=== PATIENT | male | born 1945 | race Caucasian/White ===

== ENCOUNTER → 2017-07-04 10:54 | Outpatient (CLI) | payer MEDICARE, SELFPAY ==
--- NOTE | 2017-07-04 | DI.CT.S_ITS ---
PROCEDURE: CT HEAD/BRAIN WO CON INDICATIONS: SUBDURAL HEMATOMA TECHNIQUE: Noncontrast 4.5 mm thick angled axial sections acquired from the foramen magnum to the vertex, with coronal and sagittal reformats. For radiation dose reduction, the following was used: automated exposure control, adjustment of mA and/or kV according to patient size. COMPARISON: [facility], CT, HEAD WITHOUT CONTRAST, 06/02/2017, 12:57. FINDINGS: Image quality: Excellent. CSF spaces: Basal cisterns are patent. No extra-axial fluid collections. The ventricles are symmetric in size and shape. Brain: No intracranial bleeds or masses. There is cerebral volume loss for age, with resultant ventricular and sulcal prominence. There are periventricular and deep white matter chronic small vessel ischemic changes. There is intracranial internal carotid artery atherosclerosis. Skull and face: Calvarium and visualized facial bones appear intact, without suspicious lesions. Sinuses: Visualized sinuses and mastoids are clear. IMPRESSION: Resolution of previously seen hypodense left subdural fluid collection. No acute intracranial abnormality. Volume loss and small vessel ischemic disease. Dictated by: Jade Sharif M.D. on 07/04/2017 at 11:10 Approved by: Jade Sharif M.D. on 07/04/2017 at 11:11
== END ==
PROVIDERS: Family Provider Family Medicine; PCP Family Medicine; Visit Provider Family Medicine
DX: S06.5X9A Traumatic subdural hemorrhage with loss of consciousness of unspecified duration, initial encounter (principal)
CPT/HCPCS: 70450

== ENCOUNTER → 2018-09-01 08:28 | Outpatient (CLI) | payer MEDICARE, OTHER, SELFPAY ==
--- NOTE | 2018-09-01 08:35 | DI.MRI.S_ITS ---
PROCEDURE: MR HEAD/BRAIN WO CON INDICATIONS: NONTRAUMATIC SUBDURAL HEMMORAGE TECHNIQUE: Non-contrast axial T1 spin echo, axial T2 fast spin echo, sagittal and axial FLAIR, coronal T2 fast spin echo, axial gradient echo, axial diffusion and ADC through the brain. COMPARISON: [facility], CT, CT HEAD/BRAIN WO CON, 07/04/2017, 10:56. [facility], CT, HEAD WITHOUT CONTRAST, 06/02/2017, 12:57. FINDINGS: Image quality: Excellent. CSF spaces: Ventricles appear symmetric in size and shape. Basal cisterns are patent. No extra-axial fluid collections. Brain: No intracranial bleeds or mass effects. There is mild cerebral volume loss for age. There are mild pontine, periventricular and deep white matter chronic small vessel ischemic changes. Brainstem appears normal. Diffusion-weighted images show no acute ischemic insults. No areas of encephalomalacia. No susceptibility weighted abnormalities identified in the brain parenchyma. Normal intravascular flow voids are present. Skull and face: Calvarial bone marrow is normal in signal. Orbits are normal. Sinuses: Sinuses and mastoids are clear. IMPRESSION: 1. No acute intracranial disease process. 2. No intracranial hemorrhage. 3. No abnormal intracranial mass. 4. Mild, diffuse cerebral volume loss. 5. Mild periventricular, subcortical and pontine white matter chronic microvascular ischemic changes. Dictated by: Yelena Mathis MD, PhD on 09/03/2018 at 8:58 Approved by: Yelena Mathis MD, PhD on 09/03/2018 at 11:03
== END ==
PROVIDERS: PCP Family Medicine; Visit Provider Family Medicine
DX: I62.00 Nontraumatic subdural hemorrhage, unspecified (principal); I67.82 Cerebral ischemia
CPT/HCPCS: 70551

== ENCOUNTER → 2020-04-09 10:30 | Outpatient (CLI) | payer MEDICARE, OTHER, SELFPAY ==
--- NOTE | 2020-04-09 10:35 | DI.RAD.S_ITS ---
PROCEDURE: XR HIP W PEL IF DONE LT 2V INDICATIONS: LEFT HIP PAIN TECHNIQUE: AP pelvis with lateral view(s) of the left hip(s). COMPARISON: None. FINDINGS: Bones: No fractures or dislocations. Pelvic ring appears intact. No suspicious bony lesions. Soft tissues: The visualized bowel gas pattern is normal. No suspicious soft tissue calcifications. IMPRESSION: Asymmetric hip joint osteoarthritis, mild on the right and moderate on the left Dictated by: Marin Muller M.D. on 04/09/2020 at 12:16 Approved by: Marin Muller M.D. on 04/09/2020 at 12:17
== END ==
PROVIDERS: PCP Family Medicine; Referring Provider Family Medicine; Visit Provider Family Medicine
DX: M25.552 Pain in left hip (principal); M16.12 Unilateral primary osteoarthritis, left hip
CPT/HCPCS: 73502

== ENCOUNTER → 2020-05-21 08:39 | Outpatient (CLI) | payer MEDICARE, OTHER, SELFPAY ==
--- NOTE | 2020-05-21 | DI.MRI.S_ITS ---
PROCEDURE: MR HIP LT WO CON INDICATIONS: LEFT HIP PAIN TECHNIQUE: Noncontrast coronal T1 spin echo and STIR through the bony pelvis. Coronal and axial T2 fast spin echo with fat saturation, sagittal T1 spin echo, and oblique axial T2 fast spin echo with fat saturation through the hip. COMPARISON: None. FINDINGS: Bones and joints: No fracture identified. Sacroiliac joints are unremarkable in signal intensity. There is lower lumbar spondylosis and facet arthropathy. Large left hip joint effusion. No evidence of osteonecrosis. Tendons and ligaments: The gluteus medius and minimus tendons appear intact, without associated muscle atrophy. Proximal iliotibial band intact. Iliopsoas tendon intact. Mild hamstring origin tendinopathy. This finding technically age indeterminate. The straight and reflected heads of the rectus femoris muscle origin appear intact Ligamentum teres is not well seen and possibly ruptured. There is heterogeneous mildly T2 hyperintense signal change present in the fovea. Labrum: Circumferential macerated appearance of the labrum in keeping with ill-defined tear which is likely chronic/degenerative. The alpha angle of the femur is abnormal measuring approximately 77?, this is due to decreased femoral head neck step-off and dysplastic osseous bump at the anterior femoral head neck junction. Left hip joint degeneration with areas of full-thickness articular cartilage loss. Subchondral sclerosis and spurring. Soft tissues: Visualized muscles demonstrate normal bulk and internal signal. Quadratus femoris muscle normal. Proximal sciatic neurovascular bundle appears normal adjacent to the hamstring tendons. No free pelvic fluid. Bladder normal. Genitourinary structures and bowel loops appear normal where visualized. IMPRESSION: Severe left hip joint osteoarthritis with large joint effusion. Ligamentum teres not well seen and could be ruptured. There is associated T2 hyperintense signal change at the fovea. Circumferential macerated labral tear which is likely chronic and degenerative. 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 Dictated by: Abel Rios M.D. on 05/21/2020 at 16:31 Approved by: Abel Rios M.D. on 05/21/2020 at 16:40
== END ==
PROVIDERS: PCP Family Medicine; Referring Provider Family Medicine; Visit Provider Family Medicine
DX: M25.552 Pain in left hip (principal); M16.12 Unilateral primary osteoarthritis, left hip; M25.452 Effusion, left hip; S73.102A Unspecified sprain of left hip, initial encounter
CPT/HCPCS: 73721

== ENCOUNTER → 2020-06-10 12:36 | Outpatient (CLI) | payer MEDICARE, OTHER, SELFPAY ==
[2020-06-10 13:25] LABS: BUN Creatinine Ratio 21.2 (6-22); Blood Urea Nitrogen 18 mg/dL (9-20); Estimated Glomerular Filt Rate > 60.0 mL/min (>60)
== END ==
PROVIDERS: PCP Family Medicine; Referring Provider Urology; Visit Provider Urology
DX: R97.20 Elevated prostate specific antigen [PSA] (principal)
CPT/HCPCS: 36415; 82565; 84520

== ENCOUNTER → 2020-06-12 11:58 | Outpatient (CLI) | payer MEDICARE, OTHER, SELFPAY ==
--- NOTE | 2020-06-12 12:04 | DI.CT.S_ITS ---
PROCEDURE: CT ABDOMEN PELVIS WO/W CON INDICATIONS: HEMATURIA TECHNIQUE: Optional 5 mm thick noncontrast images acquired from the diaphragm to the symphysis pubis. After the administration of intravenous contrast, 5 mm thick images acquired from the diaphragm to the symphysis pubis after a 10-minute delay. 2 mm thick coronal and sagittal reformats were then performed of the kidneys and ureters. For radiation dose reduction, the following was used: automated exposure control, adjustment of mA and/or kV according to patient size. COMPARISON: [facility], CT, KIDNEY/ URETER/BLADDER, 04/10/2015, 12:59. FINDINGS: Image quality: Excellent. Lung bases: Lung bases are clear. Heart size is normal. Coronary artery calcifications. Question of tiny hiatal hernia. Urinary system: Both kidneys are normal in size. Small calculus in the proximal left ureter measuring 0.3 cm, (2/41). No hydronephrosis. Right nonobstructing kidney stone measuring 0.3 cm, (2/41). A few small simple renal cysts. A few cortical hypodensities which are too small to further characterize. Scarring in the mid left kidney, new. No solid renal mass. No perinephric fat stranding. There is normal bilateral renal enhancement. Renal calyces appear normal in morphology when filled with contrast. Opacified portions of both ureters demonstrate normal caliber. No additional upper urinary tract filling defect. Bladder wall thickness is normal. No calcified bladder stones. Other solid organs: Liver is normal in size and enhancement. A few small cysts. Punctate hepatic calcifications. Gallbladder is unremarkable. Biliary system is non dilated. Pancreas enhances normally. Spleen is normal in size and enhancement. Calcified splenic granuloma. No adrenal nodules. Peritoneum and bowel: Small duodenal diverticulum. No small bowel obstruction. Diverticulosis. No diverticulitis. Normal appendix. No free fluid or air. Nodes and vessels: No retroperitoneal or mesenteric adenopathy by size criteria. Aorta and inferior vena cava are normal in size. Moderate circumferential calcified plaque. Abdominal wall: No ventral hernias. Pelvis: No pathologic free pelvic fluid. Suspect small fat containing inguinal hernias. No adenopathy. Bones: No suspicious bony lesions. No vertebral body compression fractures. IMPRESSION: 1. Left proximal ureter calculus measuring 0.3 cm. No hydronephrosis. 2. Additional right nonobstructing calculus measuring at 0.3 cm. 3. No solid renal mass. Dictated by: Gilbert Gray M.D. on 06/12/2020 at 12:55 Approved by: Gilbert Gray M.D. on 06/12/2020 at 13:10
== END ==
PROVIDERS: PCP Family Medicine; Referring Provider Urology; Visit Provider Urology
DX: R97.20 Elevated prostate specific antigen [PSA] (principal); R31.9 Hematuria, unspecified; N20.2 Calculus of kidney with calculus of ureter; N28.1 Cyst of kidney, acquired; K57.10 Diverticulosis of small intestine without perforation or abscess without bleeding
CPT/HCPCS: 74178; Q9967

== ENCOUNTER → 2020-07-03 11:24 | Outpatient (CLI) | payer MEDICARE, OTHER, SELFPAY ==
[2020-07-03 12:54] LABS: Add Manual Diff / Slide Review NO; Basophils Absolute Auto 0 /uL (0-100); Basophils Percent Auto 0.3 % (0-2); Eosinophils Absolute Auto 100 /uL (0-450); Eosinophils Percent Auto 2.4 % (2-4); Hematocrit 42.9 % (41-53); Hemoglobin 14.3 g/dL (13.5-17.5); Lymphocytes Absolute Auto 1300 /uL (1100-4500); Lymphocytes Percent Auto 23.9 % (25-40); Mean Corpuscular HGB Conc 33.4 % (30-36); Mean Corpuscular Volume 92.8 fL (80-100); Monocytes Absolute Auto 700 /uL (0-900); Monocytes Percent Auto 12.6 % (3-14); Neutrophils Absolute Auto 3200 /uL (1500-7000); Neutrophils Percent Auto 60.8 % (50-75); Platelet Count 164 X10^3/uL (150-400); Red Blood Cell Count 4.62 X10^6/uL (4.5-5.9); Red Cell Distribution Width 14.8 % (11.6-14.8); White Blood Cell Count 5.3 X10^3/uL (4.5-11.0)
[2020-07-03 13:10] LABS: Hemoglobin A1C% w Est Avg Glu 5.8 % (4.0-6.0)
[2020-07-03 13:26] LABS: BUN Creatinine Ratio 17.8 (6-22); Blood Urea Nitrogen 16 mg/dL (9-20); Calcium 9.3 mg/dL (8.4-10.2); Carbon Dioxide 31 mmol/L (22-32); Chloride 100 mmol/L (98-107); Estimated Glomerular Filt Rate > 60.0 mL/min (>60); Glucose 100 mg/dL (80-110); HEMOLYSIS < 15 (0-50); Potassium 4.1 mmol/L (3.4-5.1); Sodium 137 mmol/L (137-145)
== END ==
PROVIDERS: PCP Family Medicine; Referring Provider Orthopaedic Surgery Adult Reconstructive Orthopaedic Surgery; Visit Provider Orthopaedic Surgery Adult Reconstructive Orthopaedic Surgery
DX: Z01.818 Encounter for other preprocedural examination (principal); Z01.812 Encounter for preprocedural laboratory examination; R73.9 Hyperglycemia, unspecified
CPT/HCPCS: 36415; 80048; 83036; 85025; 93005

== ENCOUNTER → 2020-08-17 09:32 | Outpatient (CLI) | payer MEDICARE, OTHER, SELFPAY ==
[2020-08-17 11:56] LABS: COVID19 -Nasal RAPID Negative (Negative)
== END ==
PROVIDERS: PCP Family Medicine; Visit Provider Physician Assistant
DX: Z01.812 Encounter for preprocedural laboratory examination (principal); Z20.822 Contact with and (suspected) exposure to COVID-19
CPT/HCPCS: 87635; C9803

== ENCOUNTER 2020-08-19 08:41 | Day surgery (SDC) | payer MEDICARE, OTHER, SELFPAY ==
[2020-08-12 12:59] VITALS: BMI 25.8
--- NOTE | 2020-08-19 | DI.RAD.S_ITS ---
PROCEDURE: XR CHEST 1V INDICATIONS: post-COVID pre-op film TECHNIQUE: One view of the chest was acquired. COMPARISON: [facility], CT, CT ABDOMEN PELVIS WO/W CON, 06/12/2020, 12:06. [facility], CR, CHEST 2 VIEW, 10/24/2014, 8:56. [facility], , CHEST 2 VIEW, 07/20/2012, 12:16. FINDINGS: Surgical changes and devices: None. Lungs and pleura: Lungs are clear. No pleural effusions or pneumothorax. Mediastinum: Mediastinal contours appear normal. Heart size is normal. Bones and chest wall: No suspicious bony lesions. Calcification inferior to the left humeral head. Overlying soft tissues appear unremarkable. IMPRESSION: No acute cardiopulmonary abnormality. Dictated by: Gilbert Gray M.D. on 08/19/2020 at 9:10 Approved by: Gilbert Gray M.D. on 08/19/2020 at 9:12
[2020-08-19 09:14] VITALS: BP 145/84; PULSE 72; RESP 16; TEMP 36.3; O2SAT 99; BMI 25.8
[2020-08-19 09:29] LABS: Add Manual Diff / Slide Review NO; Basophils Absolute Auto 0 /uL (0-100); Basophils Percent Auto 0.4 % (0-2); Eosinophils Absolute Auto 100 /uL (0-450); Eosinophils Percent Auto 1.9 % (2-4); Hematocrit 45.3 % (41-53); Hemoglobin 15.2 g/dL (13.5-17.5); Lymphocytes Absolute Auto 1500 /uL (1100-4500); Mean Corpuscular HGB Conc 33.4 % (30-36); Mean Corpuscular Hemoglobin 30.4 PG (26-34); Monocytes Absolute Auto 700 /uL (0-900); Neutrophils Absolute Auto 5400 /uL (1500-7000); Neutrophils Percent Auto 69.7 % (50-75); Platelet Count 189 X10^3/uL (150-400); Red Blood Cell Count 4.98 X10^6/uL (4.5-5.9); Red Cell Distribution Width 13.9 % (11.6-14.8); White Blood Cell Count 7.7 X10^3/uL (4.5-11.0)
[2020-08-19 09:41] LABS: Fibrinogen 419 mg/dL (211-428)
[2020-08-19 09:42] LABS: PTT Partial Thromboplastin Tim 32 SECONDS (26.4-36.2)
[2020-08-19 09:44] LABS: Alanine Aminotransferase 23 IU/L (<50); Albumin 4.4 g/dL (3.5-5.0); Albumin Globulin Ratio 1.4 (1.0-2.8); Alkaline Phosphatase 73 U/L (38-126); Aspartate Aminotransferase 27 IU/L (17-59); BUN Creatinine Ratio 24.1 (6-22); Bilirubin Total 1.1 mg/dL (0.2-1.3); Blood Urea Nitrogen 21 mg/dL (9-20); Calcium 9.4 mg/dL (8.4-10.2); Carbon Dioxide 29 mmol/L (22-32); Chloride 101 mmol/L (98-107); Estimated Glomerular Filt Rate > 60.0 mL/min (>60); Globulin 3.2 g/dL (1.7-4.1); Glucose 113 mg/dL (80-110); HEMOLYSIS < 15 (0-50); Potassium 4.1 mmol/L (3.4-5.1); Sodium 137 mmol/L (137-145); Total Protein 7.6 g/dL (6.3-8.2)
[2020-08-19 09:51] LABS: D Dimer 600 ng/mL (<230)
[2020-08-19 09:53] LABS: NT-proBNP (BNP-Adult 18+) 921 pg/mL (<450)
--- NOTE | 2020-08-19 10:44 | P.PN_ITS ---
Subjective Subjective Date Patient Seen: 08/19/20 Interval history: Patient presents for total hip arthroplasty by Dr. Chaudhry 08/19/20. It was noted in his pre-operative assessment that he was diagnosed with COVID-19 07/10/20. He had mild respiratory symptoms and did not require hospitaliztion. Current policy guided on pre-operative testing, which revealed an elevated D-dimer and NT-Pro-BNP. Patient is at an intermediate cardiac risk for this surgery (prior to COVID) because of his coronary artery disease and atrial fibrillation. It was deemed prudent to obtain further testing in the form of an echocardiogram to better assess his risk at this point and to guide the apple-operative care. He had and echo before his COVID diagnosis, so this will enable an excellent comparison. Exam Vital Signs (past 8 hours): - 08/19/20 09:14 Temperature 97.4 F L Pulse Rate 72 Respiratory Rate 16 Blood Pressure 145/84 H Pulse Oximetry 99 Oxygen Delivery Method Room Air Oxygen Flow Rate 0 Objective Labs Result Diagrams: 08/19/20 08:20 08/19/20 08:20 Labs: Laboratory Results - last 24 hr 08/19/20 08/19/20 08/19/20 08:20 08:20 08:20 WBC 7.7 RBC 4.98 Hgb 15.2 Hct 45.3 MCV 91.0 MCH 30.4 MCHC 33.4 RDW 13.9 Plt Count 189 Neut % (Auto) 69.7 Lymph % (Auto) 19.0 L Alexander % (Auto) 9.0 Eos % (Auto) 1.9 L Baso % (Auto) 0.4 Neut # (Auto) 5400 Lymph # (Auto) 1500 Alexander # (Auto) 700 Eos # (Auto) 100 Baso # (Auto) 0 APTT 32 Fibrinogen 419 D-Dimer 600 H Sodium 137 Potassium 4.1 Chloride 101 Carbon Dioxide 29 BUN 21 H Creatinine 0.87 Estimated GFR > 60.0 BUN/Creatinine Ratio 24.1 H Glucose 113 H Calcium 9.4 Total Bilirubin 1.1 AST 27 ALT 23 Alkaline Phosphatase 73 NT-Pro-B Natriuret Pep 921 H Total Protein 7.6 Albumin 4.4 Globulin 3.2 Albumin/Globulin Ratio 1.4 PFSH Medical History (Updated 08/13/20 @ 08:38 by Xuan Hastings RN) A-fib CAD (coronary artery disease) COVID-19 virus infection Elevated PSA HLD (hyperlipidemia) HTN (hypertension) Kidney stones Myocardial infarction (~2015) Osteoarthritis Presence of Watchman left atrial appendage closure device (~2019) Subdural hematoma (04/2018) Surgical History (Updated 08/12/20 @ 13:17 by Xuan Hastings RN) Hx of cardiac cath Hx of tonsillectomy Social History household members: spouse Smoking Status: Never smoker alcohol intake: never Assessment & Plan Assessment & Plan narrative: 75 year-old man pre-op for MAISHA post-COVID infection with elevated labs concerning for cardiac injury and coagulation derangement. Will reschedule for two weeks with plan for an echocardiogram and its comparison to previous in that time. May need to consider following Pro-NT-BNP in the days post-operatively to assess for cardiac injury/strain while an inpatient. Time Spent With Patient Time with patient: less than 15 minutes
--- NOTE | 2020-08-19 10:49 | SUR.PREOP ---
PATIENTS LABS, XRAY AND EKG WERE ALL RESULTED. DR. CONNOLLY HAS REVIEWED, CASE HAS BEEN CANCELLED. PATIENT NOTIFIED BY DR. CONNOLLY. PATIENT ESCORTED TO WAITING AREA TO WAIT FOR HIS DTR TO ARRIVE. HE HAS HIS CELL PHONE AND ALL OTHER PERSONAL ITEMS WITH HIM.
== END 2020-08-19 10:51 | disposition home or self-care (01) ==
LOC: OR 08:42 → AC 08:43
PROVIDERS: Anesthesiology; PCP Family Medicine; Referring Provider Orthopaedic Surgery Adult Reconstructive Orthopaedic Surgery; Visit Provider Orthopaedic Surgery Adult Reconstructive Orthopaedic Surgery
DX: M16.12 Unilateral primary osteoarthritis, left hip (principal); Z53.09 Procedure and treatment not carried out because of other contraindication; Z86.16 Personal history of COVID-19; I10 Essential (primary) hypertension; I25.10 Atherosclerotic heart disease of native coronary artery without angina pectoris
CPT/HCPCS: 27130; 71045; 80053; 83880; 85025; 85379; 85384; 85730; 93005; 93010

== ENCOUNTER → 2020-08-31 08:54 | Outpatient (CLI) | payer MEDICARE, OTHER, SELFPAY ==
--- NOTE | 2020-08-31 | DI.ECHO.S_ITS ---
[place] +---------+ : : [address] : : : : [id number] : : : : Phone: [phone]+ Echocardiogram Report + + :Name: JENN GARCIA Study Date: 08/31/2020 Height: 68 in : :[facility] ReadingLocation: Weight: 165 lb : : Gender: Male BSA: 1.9 m2 : :: 1945 Age: 75 yrs BP: 169/94 mmHg: :Reason For Study: Hypertension : :Ordering Physician: [place], : :JEREMY Performed By: Azam Grigsby : :Referring: JEREMY COLEMAN : + + Interpretation Summary Normal left ventricle size with ejection fraction 55 +/- 5% (with [id number] variability). There is posterolateral wall mild hypokinesis. Mildly dilated left atrium. Mild aortic valve sclerosis. Mild mitral regurgitation. Mild tricuspid regurgitation. The right ventricular systolic pressure is estimated to be at least 38 mmHg based on an estimated right atrial pressure of 3 mm Hg. Comparison is made with the echocardiogram of 05/31/2013, atrial fibrillation is new and wall motion abnormality has improved. Procedure: A two-dimensional transthoracic echocardiogram with color flow and Doppler was performed. The study quality was technically adequate. Comparison is made with the echocardiogram of 05/31/2013. The patient was in atrial fibrillation with controlled ventricular rate during the exam. Left Ventricle: The left ventricle is normal in size and wall thickness. Left ventricular systolic function is low normal. Left ventricular ejection fraction is estimated to be 55 +/- 5%. There is posterolateral wall mild hypokinesis. There are no other obvious focal wall motion abnormalities. Diastolic function could not be accurately assessed due to atrial fibrillation. Right Ventricle: The right ventricle is normal in size and function. Atria: The left atrium is mildly dilated. Right atrial size is normal. There is no Doppler evidence for an interatrial shunt. Mitral Valve: The mitral valve is normal in structure and function. There is mild mitral regurgitation. Aortic Valve: There is mild aortic valve sclerosis. No aortic regurgitation is present. Tricuspid Valve: The tricuspid valve is normal in structure and function. There is mild tricuspid regurgitation. The right ventricular systolic pressure is estimated to be at least 38 mmHg based on an estimated right atrial pressure of 3 mm Hg. Pulmonic Valve: The pulmonic valve is normal in structure and function. There is no pulmonic valvular regurgitation. Great Vessels: The aortic root is normal size. The dimensions of the ascending aorta are normal. The IVC is of normal diameter and collapses greater than 50% with a sniff. This suggests a low right atrial pressure of 3 mm Hg. Pericardium/ Pleura There is no pericardial effusion. There is no pleural effusion. MMode/2D Measurements & Calculations LVIDd: 5.0 cm LVOT diam: 2.2 cm LVIDs: 3.8 cm Ao root diam: 3.0 cm FS: 24.5 % asc Aorta Diam: 3.1 cm IVSd: 0.90 cm LVPWd: 0.99 cm LV power. diameter/BSA (cm/m^2): 2.7 LV sys. diameter/BSA (cm/m^2): 2.0 LA dimension: 4.0 cm RA long axis: 5.7 cm LA A2 area: 21.7 cm2 IVC diam: 1.4 cm LA A4 area: 22.4 cm2 LA length (vol): 5.8 cm LA vol: 70.8 ml LA vol index: 37.6 ml/m2 LVLs ap4: 6.7 cm LVLd ap2: 6.9 cm LVLs ap2: 6.4 cm TAPSE_phl: 2.0 cm RVIDd/LVIDd_phl: 0.67 Doppler Measurements & Calculations Ao V2 max: 105.0 cm/sec LVOT Max Romie: 66.7 cm/sec Ao V2 mean: 75.1 cm/sec LV V1 max P.8 mmHg Ao max P.0 mmHg LV V1 VTI: 14.5 cm Ao mean P.0 mmHg LO(I,D): 2.8 cm2 Ao V2 VTI: 19.6 cm LO(V,D): 2.4 cm2 sev ratio: 0.74 LO indexed to BSA (cm^2/m^2): 1.5 TR max romie: 297.0 cm/sec SV(LVOT): 55.1 ml TR max P.3 mmHg PA V2 max: 118.0 cm/sec PA V2 mean: 66.7 cm/sec PA mean P.0 mmHg PA pr(Accel): 39.8 mmHg AV VR_phl: 0.64 LO(VTI)/BSA_phl: 1.5 Electronically signed by: Denisse Krishnamurthy on Reading Physician:08/31/2020 04:36 PM
== END ==
PROVIDERS: PCP Family Medicine; Referring Provider Internal Medicine; Visit Provider Internal Medicine
DX: I10 Essential (primary) hypertension (principal); I08.3 Combined rheumatic disorders of mitral, aortic and tricuspid valves
CPT/HCPCS: 93306

== ENCOUNTER → 2020-09-28 10:34 | Outpatient (CLI) | payer MEDICARE, OTHER, SELFPAY ==
[2020-09-28 13:11] LABS: COVID19 -Nasal RAPID Negative (Negative)
== END ==
PROVIDERS: PCP Family Medicine; Visit Provider Nurse Practitioner
DX: Z20.822 Contact with and (suspected) exposure to COVID-19 (principal)
CPT/HCPCS: 87635; C9803

== ENCOUNTER 2020-10-01 11:13 | Observation (INO) | payer MEDICARE, OTHER, SELFPAY ==
[2020-09-22 08:02] VITALS: BMI 25.8
[2020-09-30] VITALS (31 sets, daily range): BP systolic 88–170; BP diastolic 52–93; PULSE 74–92; RESP 10–98; TEMP 36.1–36.8; O2SAT 10–99; BMI 25.8
--- NOTE | 2020-09-30 | DI.RAD.S_ITS ---
PROCEDURE: XR PELVIS 1-2V INDICATIONS: LEFT HIP POST OP TECHNIQUE: 1 view of the lower pelvis acquired. COMPARISON: [facility], , XR PELVIS 1-2V, 09/30/2020, 8:52. FINDINGS: Bones: Patient is status post left hip arthroplasty, with hardware components in expected positions. The hip joint appears congruent. The visualized bony structures appear intact. Soft tissues: Overlying postoperative changes are noted. No suspicious soft tissue densities. IMPRESSION: Normal alignment after left total hip arthroplasty. Dictated by: Marin Muller M.D. on 09/30/2020 at 10:43 Approved by: Marin Muller M.D. on 09/30/2020 at 10:43
--- NOTE | 2020-09-30 06:50 | DI.RAD.S_ITS ---
PROCEDURE: XR PELVIS 1-2V INDICATIONS: MAISHA, anterior TECHNIQUE: Intra-operative view of the pelvis and hip acquired. COMPARISON: None. FINDINGS: Bones: Intraoperative devices prior to placement of arthroplasty prostheses are in expected positions. No fractures or suspicious bony lesions. Soft tissues: Overlying surgical retractors are present, along with other intraoperative changes. IMPRESSION: Normal alignment in preparation for placement of final components of left total hip arthroplasty. Dictated by: Marin Muller M.D. on 09/30/2020 at 10:53 Approved by: Marin Muller M.D. on 09/30/2020 at 10:53
[2020-09-30] MEDS: PREGABALIN 75 MG CAPSULE PO (07:22)
[2020-09-30] MEDS: ACETAMINOPHEN 325 MG TABLET 975 MG PO (07:22)
[2020-09-30] MEDS: CELECOXIB 200 MG CAPSULE PO (07:22)
[2020-09-30] MEDS: LACTATED RINGERS 1,000 ML 42 ML IV ×2 (07:25→09:51)
--- NOTE | 2020-09-30 07:28 | PM.PREOP ---
Pre-operative Note COVID-19 COVID-19 status: Negative Result date/Date tested (Pos, Neg/Pending): 09/28/20 Interval Note History & Physical reviewed/Exam performed by Physician: Yes Changes to H&P: Yes H&P completed within 30 days and has changed as indicated here:: Patient's surgery was cancelled last month due to concern for cardiac injury from Covid diagnosis. He has undergone repeat echo without change. Plan is to proceed with right anterior MAISHA.
[2020-09-30] MEDS: CEFAZOLIN 1 GM VIAL 2 GM IV ×2 (08:20→17:05)
[2020-09-30] MEDS: MORPHINE 4 MG/ML INJ INJ (08:30)
[2020-09-30] MEDS: ROPIVACAINE 0.5% PF 5 MG/ML 20ML VIAL 60 ML INJ (08:30)
[2020-09-30] MEDS: KETOROLAC 30 MG/ML VIAL IV (08:30)
--- NOTE | 2020-09-30 08:33 | SUR.OPER ---
Patient supine on padded [place] table, one arm on padded arm board at <90, other arm padded and secured with tape across patient's chest, both legs secured in padded traction boots and positioned per surgeon, padded post at patient's groin, pressure points checked and padded.
[2020-09-30] MEDS: VANCOMYCIN 1,000 MG VIAL 1000 MG TOP (09:51)
--- NOTE | 2020-09-30 10:11 | PM.OP.1 ---
Operative Date/Time/Diagnoses Date of procedure: 09/30/20 Time of procedure: 10:12 Pre-op diagnosis: left hip OA Post-op diagnosis: same Procedure & Clinicians Procedure: Left anterior total hip arthroplasty Same procedure as scheduled: Yes Indications: Left hip osteoarthritis resistant to further conservative measures Surgeon: Alfredo Chaudhry Solar Energy Consultant And Designer: Umm Da Silva Anesthesia Type: General and Spinal Operative Notes Findings: Thickened capsule and wearing of the weight-bearing portion of the articular cartilage of the femoral head. Closure Type: primary Prosthetic devices, grafts, tissues, transplants, or devices: Reinoso and nephew R3 54 mm 3 hole cup 1x 25mm screw 1x 15mm screw 54 mm x 36 mm neutral offset polyethylene liner Anthology a fit standard offset size 9 femoral stem 36+ 0 delta Biolox head Estimated Blood Loss (mL): 300 Procedure in detail: Patient was met in the preoperative holding area where the site and side surgery marked by . Informed consent had been reviewed and signed in clinic was also reviewed the preop holding area. Of note patient was scheduled to have surgery about a month ago was canceled due to concerns that he may have had cardiac damage after ezra COVID. He subsequently underwent echo and was cleared for surgery. Patient was then brought back in the operating room where he received a spinal anesthetic and was deuce underwent general anesthesia. He was placed on [place] table both feet were placed in well-padded [place] table boots. The left lower extremity then prepped and draped in normal sterile fashion. A surgical time-out was performed verifying site side surgical and the patient. A 10 cm long incision starting approximately 2 cm distal and 1 cm lateral to ASIS into the fibular head was made the skin with a 10. Blade. Electrocautery was then used to dissect down to the level of the tensor fascia. Tensor fascia was then incised using 10. Blade. Allis clamp was placed on the medial leaf of the tensor itself was reflected laterally. A Cobra was then placed over the superior aspect of the femoral neck. A Meyerding retractors then placed over the lateral aspect of the rectus femoris and retracted medially this gave exposure to this and a branch of the femoral circumflex vessels these were coagulated using electrocautery. Next a 2nd Cobra retractors placed under the inferior aspect of the femoral neck. And a bent Hohmann retractors placed over the anterior aspect of the acetabulum to give us exposure to the capsule. Inverted T-shaped capsulotomy was then performed superior and inferior leaflets were tagged with a FiberWire suture. Cobra retractors then placed intracapsularly a femoral neck cut was then used medially with a reciprocating saw based off our preoperative template. A corkscrew was then used to remove the femoral head. Soft tissue sleeve protector was then introduced into the wound retractor was then replaced and pulmonary was then removed using electrocautery the remnant of the labrum was then also removed using [place] blade. Began reaming with a 44 mm Reamer upsizing by 2s until I got to 50 mm Reamer at this point I brought in fluoroscopy and removed last several reamers under fluoroscopic guidance ending with a 52 and then going up to 1 more size to 53 mm Reamer which had good resistance. I then selected a 54 mm 3 hole R3 cup this was then malleted into place under fluoroscopic guidance and 2 screws were then placed. The 54 mm x 36 mm neutral offset polyethylene liner was then placed and packed into place verifying L tabs were flush with the rim. Then turned my attention the femoral side femoral elevator hook was placed under the posterior aspect of the femur the femur was externally rotated to 120? extend to the floor and adducted. A bent Hohmann was placed over the superior aspect of the superior leaflet and the capsule was further released off the inner shoulder of the greater trochanter gives a shop soft spot over the greater trochanter a single large prong retractor was then placed over his superior aspect of greater trochanter and a Meyerding was then placed over the medial calcar to give us exposure the femoral neck cut. A canal finer was then used followed by a chili pepper broach followed size 1 through 3 of the standard broaches I then used a fit broaches up to a size 8. I then calcar planed off the size 8 broach and placed a standard offset head with a 32+ 0 head this was then reduced fluoroscopic imaging demonstrated were short on this side by several mm although was stable to maximal external rotation as well as external rotation 90? extension the floor. In addition the stem was in slight amount of varus. The hip was then dislocated trial components were removed I then up sized to a size 9 a fit which sat a mm proud. We then trialed with a 36 +4 trial head this was not able to be reduced due to soft tissue tension. I then downsized to a 36+ 0 head and reduced the hip again we were shown to be a little short on this side by did not think that getting to a 36+ 4 head would be possible without possibly fracturing the femur. Trial components were then removed a size 9 a fit femoral component was then placed and a 36+ 0 delta Biolox head was then malleted onto the trunnion and reduced a final time. Peritalar soft tissues were infiltrated with local anesthetic Betadine solution was then placed in the wound and final fluoroscopic images were obtained. Copious normal saline was then used to irrigate the wound and the capsulotomy was then repaired using a running Ethibond suture. FiberWire tag sutures were then removed. The tensor fascia was then repaired using 1. Vicryl in an interrupted locking fashion followed by 2 Vicryl Vicryl in the subcutaneous layer followed by running 3-0 Stratafix followed by Dermabond and Aquacel dressing Complications: none Post-operative Condition: stable Disposition: PACU Plan for aftercare: WBAT LLE, ASA 81mg BId for 6 weeks, 24 hours post-op abx
--- NOTE | 2020-09-30 10:26 | SUR.PHASEI ---
Patient from OR in bed with Dr Bray and RN after duramorph spinal. Pt on Phenyllephrine drip running at 40mcg/min. Decreased by MD to 33mcg/min. Plan to wean as spinal wears off. Pt placed on 2L NC oxygen. Breathing unassisted. Opens eyes.
--- NOTE | 2020-09-30 10:39 | SUR.PHASEI ---
Dr Childress at bedside. Reviewed patient VS. X-ray done. See by Dr Chaudhry.
--- NOTE | 2020-09-30 10:45 | SUR.PHASEI ---
Pheylephrine drip decreased to 20mcg/min by Dr Riveroyk
--- NOTE | 2020-09-30 11:00 | SUR.PHASEI ---
Pheylephrine drip decreased to 15mch/min
--- NOTE | 2020-09-30 11:06 | SUR.PHASEI ---
Dr Childress at bedside. VS reviewed and Pheylephrine drip dosage and weaning.
--- NOTE | 2020-09-30 11:10 | SUR.PHASEI ---
Phenylephrine drip decreased to 10mcg/min
--- NOTE | 2020-09-30 11:18 | SUR.PHASEI ---
Phenylephrine decreased to 5mcg/min. Pt starting to move lower extremities.
--- NOTE | 2020-09-30 11:25 | SUR.PHASEI ---
1123 Phenylephrine drip stopped.
--- NOTE | 2020-09-30 11:52 | SUR.PHASEI ---
SBAR report to Veronica WOOD
--- NOTE | 2020-09-30 11:59 | SUR.PHASEI ---
Denies pain/nausea. HOB slightly elevated and juice given prior to transfer. To floor by an RN and MANAGER COMPETITIVE INTELLIGENCE. Pt alert and oriented, clothing bag to the room with him. Stable and pleasant gentleman.
[2020-09-30] MEDS: LACTATED RINGERS 1,000 ML 125 ML IV ×2 (12:58→20:29)
[2020-09-30] MEDS: IBUPROFEN 400 MG TABLET PO ×2 (14:06→20:25)
--- NOTE | 2020-09-30 15:50 | PT.IIE ---
Current Diagnoses Unilateral primary osteoarthritis, left hip (09/30/20) Surgery Performed Operation Date: 09/30/20 07:45 Actual Procedures p Total Hip Arthroplasty/Anterior Approach(Left) - Alfredo Chaudhry MD Medical History (Last Updated 08/13/20 @ 08:38 by Xuan Hastings RN) A-fib CAD (coronary artery disease) COVID-19 virus infection Elevated PSA HLD (hyperlipidemia) HTN (hypertension) Kidney stones Myocardial infarction (~2015) Osteoarthritis Presence of Watchman left atrial appendage closure device (~2019) Subdural hematoma (04/2018) Physical Therapy Inpatient Evaluation/Re-Eval M1 PT/OT-IP Prior Functional Status Start: 09/30/20 17:26 Freq: NEEDED Status: Active Protocol: Document 09/30/20 15:50 AB (Rec: 09/30/20 17:44 AB [id number]) Medical Review Prior Functional Status Medical History Reviewed Yes Communication able to make needs known Mobility and Gait pt stated that he is independent with all mobilities without AD but has been using a SPC for the last 2 weeks due to hip pain Social History Household Members spouse Living Arrangements House Number of Floors (Floors) Two Floors Number of Stairs To Enter/Railing? pt will stay on main level of the house 1 step to enter; 2 steps down with bilateral wide rails to bedroom level (can only hold on to one rail at a time) Home Environment Standard Height Toilet,Walk in Shower Home Equipment Front Wheel Walker,Quad Cane, Bedside Commode,Hand Held Shower Additional Social History Comment pt's daughter will stay with pt for a few days and then afterwards another daughter will come in to replace the other daughter to assist M2 PT-IP Current Condition Start: 09/30/20 17:26 Freq: NEEDED Status: Active Protocol: Document 09/30/20 15:50 AB (Rec: 09/30/20 17:44 AB [email or web address]) Physical Therapy Current Condition Current Condition Evaluation Date 09/30/20 Treatment Diagnosis s/p L MAISHA anterior approach; difficulty in walking Onset Date 09/30/20 Precautions Anterior Hip Precautions No Hip Extension,No Hip External Rotation Weight Bearing Status Weight Bearing Status Weight Bear as Tolerated Allowed Weight Bearing Amount (enter % LLE WBAT or #) (%) M3 PT-IP Subjective Start: 09/30/20 17:26 Freq: NEEDED Status: Active Protocol: Document 09/30/20 15:50 AB (Rec: 09/30/20 17:44 AB [id number]) Subjective Physical Therapy Visit Type Type Initial Evaluation Visit Start Time 15:50 Visit Stop Time 16:45 Total Visit Minutes 55 Number of UNIT DIRECTOR Visits 0 Physical Therapy Visit Comments Patient Comments agreeable to do PT; spouse and daughter in room with pt Therapy Pain Assessment Pain Present Pain Present Denied Pain M4 PT-IP Mobility and Gait Start: 09/30/20 17:26 Freq: NEEDED Status: Active Protocol: Document 09/30/20 15:50 AB (Rec: 09/30/20 17:44 AB [email or web address]) PT-Bed Mobility Assessment Supine to Sit Supine to Sit Standby Assistance Sit to Supine Sit to Supine Standby Assistance PT-Transfer Assessment Sit to and From Stand Sit to and from Stand Contact Guard Assistance,1 Person Assistance,Use of Upper Extremities Equipment Transfer Assistive Device Gait Belt,Front Wheeled Walker Orthotic/Prosthetic Devices or Brace: No Comments Mobility Comments educated pt on hip precautions . completed supine to sit SBA . able to sit on EOB SBA. BP in sittin/86. no c/o dizziness/lightheadedness. completed sit to stand CGA and ambulated in room using FWW CGA to min A and cues ~ 30 ft. pt requested to go back to bed. completed sit to supine SBA. positioned in bed. call light and table placed within reach. Caregiver training set up: 9 am 10/01/20 Thurs. Gait Assessment Gait Gait Assistance Required: Contact Guard Assist,Minimum Assistance,1 Person Assist Distance (Feet) 30 Able to Maintain Weight Bearing Status Yes During Gait Assistive Devices Assistive Device Gait Belt,Front Wheeled Walker Orthotic/Prosthetic Devices or Brace: No Gait Deviations General Gait Pattern Decreased Stride Length, Decreased Feet Clearance Factors Limiting Gait Function Factors Limiting Gait Function Decreased Activity Tolerance, Decreased Strength,Limited Range of Motion,Poor Balance, Poor Safety Awareness PT-Balance Assessment Sitting Balance and Reactions Static Sitting Balance Ability Good Dynamic Sitting Balance Ability Good Standing Balance and Reactions Static Standing Balance Ability Fair Dynamic Standing Balance Ability Fair Device Used FWW M5 PT-IP Objective Assessments Start: 09/30/20 17:26 Freq: NEEDED Status: Active Protocol: Document 09/30/20 15:50 AB (Rec: 09/30/20 17:44 AB [id number]) Orientation Orientation/Cognition Level of Alertness Alert Orientation Name,Age,Birthday,Month,Date, Year,Day of Week,Place, Situation Language Function Ability No Deficits Noted Safety Awareness Understands Safety Issues Memory Description Short Term Impaired Gross Range of Motion Lower Extremity ROM Assessment Within Functional Limits Strength Lower Extremity Strength Assessment Left Impaired Hip 3+/5 Knee 4-/5 Sensation Assessment Sensation Gross Sensation WNL Muscle Tone Muscle Tone WNL Yes M6 PT-IP Treatment Start: 09/30/20 17:26 Freq: NEEDED Status: Active Protocol: Document 09/30/20 15:50 AB (Rec: 09/30/20 17:44 AB [email or web address]) Physical Therapy Treatment Education Education Provided Precautions,Weight Bearing Status,Post-Op Packet,Safety M7 PT-IP Assessment and Plan Start: 09/30/20 17:26 Freq: NEEDED Status: Active Protocol: Document 09/30/20 15:50 AB (Rec: 09/30/20 17:44 AB [email or web address]) PT Summary Assessment and Plan Potential Rehabilitation Potential Good Status of Condition at Evaluation Stable Summary Impairments Pain,ROM,Strength,Balance, Coordination,Sensation,Bed Mobility,Transfers,Gait, Activity Tolerance Assessment Summary pt s/p L MAISHA anterior approach POD 0. pt requiring CGA to min A with ambulation using FWW and will likely progress during hospital stay. caregiver training set up at 9 am. will continue to assess progress. stair climbing training also will be conducted prior to d/c . Goals Bed Mobility Goal Independent Transfer Goal Independent,Front Wheeled Walker Gait Goal Independent,Front Wheel Walker Gait Distance 200 Other Goals up/down 1 step using FWW SBA up/down 2 steps 1 rail SBA Days to Meet Goals 5 Frequency of Treatment Frequency Of Treatment Twice a Day Treatment Plan Physical Therapy Treatment Plan Bed Mobility Training,Transfer Training,Gait Training, Therapeutic Exercise,Balance Retraining,Post Op Education, Discharge Planning,Hot or Cold Pack,Neuromuscular Re-ed, Coordination Retraining,Manual Therapy Other Recommendations and Next Treatment caregiver trainin10/01 Focus @ 9 am Precautions Anterior Hip Precautions No Hip Extension,No Hip External Rotation Recommendations To Nursing Amount of Assist Needed 1 Person Assist Discharge Recommendations PT Discharge Recommendations Home with Assistance, Outpatient PT
[2020-09-30] MEDS: LOSARTAN 50 MG TABLET PO (17:06)
[2020-09-30] MEDS: ACETAMINOPHEN 325 MG TABLET 650 MG PO ×2 (17:06→21:55)
[2020-09-30] MEDS: TAMSULOSIN 0.4 MG CAPSULE PO (20:25)
[2020-09-30] MEDS: METOPROLOL IR 50 MG TABLET PO (20:25)
[2020-09-30] MEDS: ATORVASTATIN 20 MG TABLET 40 MG PO (20:25)
[2020-09-30] MEDS: DOCUSATE 100 MG CAPSULE PO (20:25)
[2020-09-30] MEDS: ASPIRIN EC 81 MG TABLET PO (20:25)
[2020-10-01 00:40] VITALS: BP 105/56; PULSE 76; RESP 16; TEMP 36.8; O2SAT 94
[2020-10-01] MEDS: IBUPROFEN 400 MG TABLET PO ×3 (00:46→08:27)
[2020-10-01] MEDS: CEFAZOLIN 1 GM VIAL 2 GM IV (00:46)
[2020-10-01] MEDS: LACTATED RINGERS 1,000 ML 125 ML IV (04:37)
[2020-10-01 04:41] VITALS: BP 111/69; PULSE 80; RESP 16; TEMP 36.6; O2SAT 94
[2020-10-01 06:37] LABS: Hematocrit 31.9 % (41-53); Hemoglobin 10.8 g/dL (13.5-17.5)
[2020-10-01 07:48] VITALS: BP 103/77; PULSE 89; RESP 16; TEMP 36.4; O2SAT 96
[2020-10-01] MEDS: hydroCHLOROthiazide 25 MG TABLET PO (08:26)
[2020-10-01] MEDS: ASPIRIN EC 81 MG TABLET PO (08:26)
[2020-10-01] MEDS: METOPROLOL IR 50 MG TABLET PO (08:26)
[2020-10-01] MEDS: LOSARTAN 50 MG TABLET 25 MG PO (08:27)
[2020-10-01] MEDS: DOCUSATE 100 MG CAPSULE PO (08:27)
[2020-10-01] MEDS: ACETAMINOPHEN 325 MG TABLET 650 MG PO (08:27)
--- NOTE | 2020-10-01 09:33 | PT.IPTN ---
Current Diagnoses Unilateral primary osteoarthritis, left hip (09/30/20) Surgery Performed Operation Date: 09/30/20 07:45 Actual Procedures p Total Hip Arthroplasty/Anterior Approach(Left) - Alfredo Chaudhry MD Physical Therapy Treatment Note M2 PT-IP Current Condition Start: 09/30/20 17:26 Freq: NEEDED Status: Active Protocol: Document 09/30/20 15:50 AB (Rec: 09/30/20 17:44 AB [email or web address]) Physical Therapy Current Condition Current Condition Evaluation Date 09/30/20 Treatment Diagnosis s/p L MAISHA anterior approach; difficulty in walking Onset Date 09/30/20 Precautions Anterior Hip Precautions No Hip Extension,No Hip External Rotation Weight Bearing Status Weight Bearing Status Weight Bear as Tolerated Allowed Weight Bearing Amount (enter % LLE WBAT or #) (%) M3 PT-IP Subjective Start: 09/30/20 17:26 Freq: NEEDED Status: Active Protocol: Document 10/01/20 09:06 CLB (Rec: 10/01/20 09:46 CLB [id number]) Subjective Physical Therapy Visit Type Type Treatment Note Visit Start Time 09:06 Visit Stop Time 09:33 Total Visit Minutes 27 Notes and daughter present for CG training Number of POLITICAL WORKER Visits 1 Physical Therapy Visit Comments Patient Comments agreeable to do PT; spouse and daughter in room with pt Therapy Pain Assessment Pain Present Pain Present Denied Pain M4 PT-IP Mobility and Gait Start: 09/30/20 17:26 Freq: NEEDED Status: Active Protocol: Document 10/01/20 09:06 CLB (Rec: 10/01/20 09:46 CLB [id number]) PT-Transfer Assessment Sit to and From Stand Sit to and from Stand Standby Assistance,1 Person Assistance,Use of Upper Extremities Equipment Transfer Assistive Device Gait Belt,Front Wheeled Walker Orthotic/Prosthetic Devices or Brace: No Comments Mobility Comments Pt in chair, and daughter present. Pt performed seated ther ex and recalled 2/2 anterior hip precautions. Pt stood SBA and ambulated in david ~200ft w/FWW/SBA. Pt climbed stairs SBA and ambulated back to room. Pt left with all needs within reach. Gait Assessment Gait Gait Assistance Required: Standby Assistance,1 Person Assist Distance (Feet) 200 Able to Maintain Weight Bearing Status Yes During Gait Assistive Devices Assistive Device Gait Belt,Front Wheeled Walker Orthotic/Prosthetic Devices or Brace: No Gait Deviations General Gait Pattern Decreased Stride Length, Decreased Feet Clearance Factors Limiting Gait Function Factors Limiting Gait Function Decreased Activity Tolerance, Decreased Strength,Limited Range of Motion Comments Gait Comments see mobility comments Stair Climbing Assessment Evaluation Level of Assist On Stairs Standby Assistance Devices Stair Climbing Assistive Devices Four Wheel Walker,Left Railing Technique/Endurance Stair Climbing Direction Ascend and Descend Stair Climbing Technique Step to Step Number of Steps Climbed 4 Stair Climbing Set # Repetitions (reps) 1 M5 PT-IP Objective Assessments Start: 09/30/20 17:26 Freq: NEEDED Status: Active Protocol: Document 09/30/20 15:50 AB (Rec: 09/30/20 17:44 AB [email or web address]) Orientation Orientation/Cognition Level of Alertness Alert Orientation Name,Age,Birthday,Month,Date, Year,Day of Week,Place, Situation Language Function Ability No Deficits Noted Safety Awareness Understands Safety Issues Memory Description Short Term Impaired Gross Range of Motion Lower Extremity ROM Assessment Within Functional Limits Strength Lower Extremity Strength Assessment Left Impaired Hip 3+/5 Knee 4-/5 Sensation Assessment Sensation Gross Sensation WNL Muscle Tone Muscle Tone WNL Yes M6 PT-IP Treatment Start: 09/30/20 17:26 Freq: NEEDED Status: Active Protocol: Document 10/01/20 09:06 CLB (Rec: 10/01/20 09:46 CLB [id number]) Physical Therapy Treatment Exercises Exercises Ankle Pumps,Gluteal Sets,Quad Sets,Heel Slides Education Education Provided Precautions,Weight Bearing Status,Post-Op Packet,Safety M7 PT-IP Assessment and Plan Start: 09/30/20 17:26 Freq: NEEDED Status: Active Protocol: Document 10/01/20 09:06 CLB (Rec: 10/01/20 09:46 CLB [id number]) PT Summary Assessment and Plan Potential Rehabilitation Potential Good Status of Condition at Evaluation Stable Summary Impairments Pain,ROM,Strength,Balance, Coordination,Sensation,Bed Mobility,Transfers,Gait, Activity Tolerance Progress Towards Goals Progressing Toward Goals Assessment Summary Pt family present for CG training, pt able to perform all mobility SBA, ambulated ~ 200ft w/FWW/SBA and climbed stairs SBA. Pt seems able to d /c home with assist of and daughters. Goals Bed Mobility Goal Independent Transfer Goal Independent,Front Wheeled Walker Gait Goal Independent,Front Wheel Walker Gait Distance 200 Other Goals up/down 1 step using FWW SBA up/down 2 steps 1 rail SBA Days to Meet Goals 5 Frequency of Treatment Frequency Of Treatment Twice a Day Treatment Plan Physical Therapy Treatment Plan Bed Mobility Training,Transfer Training,Gait Training, Therapeutic Exercise,Balance Retraining,Post Op Education, Discharge Planning,Hot or Cold Pack,Neuromuscular Re-ed, Coordination Retraining,Manual Therapy Precautions Anterior Hip Precautions No Hip Extension,No Hip External Rotation Recommendations To Nursing Amount of Assist Needed 1 Person Assist Discharge Recommendations PT Discharge Recommendations Home with Assistance, Outpatient PT
--- NOTE | 2020-10-01 10:59 | P.DS_ITS ---
History of Present Illness History of Present Illness Date Patient Seen: 10/01/20 Time Patient Seen: 11:00 Chief complaint: OPB Narrative: The patient is complaining of minimal pain, well controlled with current pain regimen. He denies any fevers, chills, night sweats. He denies any numbness or tingling in bilateral lower extremities. He is working with physical therapy and has been cleared for home. He and his family would like to be discharged as soon as possible. Discharge Providers Provider Discharge Date: 10/01/20 Primary care physician: Anatoliy Bush MD Consults: 09/22/20 08:09 Consult to Anesthesiology Routine Comment: Consulting Provider: Anesthesiologist Reason for consultation: PAC courtesy re: Pt w/COVID 07/10/20, Echo follow-up per anesthesia recommend 09/30/20 06:50 Consult to Anesthesiology Routine Comment: Consulting Provider: Anesthesiologist Reason for consultation: Regional block for post operative pain control 09/30/20 12:12 Consult to Discharge Planning Routine Comment: Consult to Physical Therapy Evaluate & Treat Comment: Physician Instructions: post op MAISHA protocol Consult to Respiratory Therapy Evaluate & Treat Comment: Physician Instructions: Evaluate and treat Discharge provider: Umm Da Silva PA-C Summary Hospital Course Discharge Diagnosis: Left hip osteoarthritis Hospital Course: Procedure: Left anterior total hip arthroplasty Same procedure as scheduled: Yes Indications: Left hip osteoarthritis resistant to further conservative measures Surgeon: Alfredo Chaudhry Employment Officer: Umm Da Silva Anesthesia Type: General and Spinal Operative Notes Findings: Thickened capsule and wearing of the weight-bearing portion of the articular cartilage of the femoral head. Closure Type: primary Prosthetic devices, grafts, tissues, transplants, or devices: Reinoso and nephew R3 54 mm 3 hole cup 1x 25mm screw 1x 15mm screw 54 mm x 36 mm neutral offset polyethylene liner Anthology a fit standard offset size 9 femoral stem 36+ 0 delta Biolox head Estimated Blood Loss (mL): 300 Status at Discharge Cognitive/behavioral status at discharge: oriented Functional status at discharge: uses cane/walker Overall status at discharge: patient is progressing back to baseline Exam Vital Signs (past 8 hours): - 10/01/20 04:41 10/01/20 07:48 Temperature 97.9 F 97.6 F Pulse Rate 80 89 Respiratory Rate 16 16 Blood Pressure 111/69 103/77 Pulse Oximetry 94 96 Oxygen Delivery Method Room Air Oxygen Flow Rate 0 Narrative Exam Narrative: Pleasant 75-year-old male, resting comfortably in his chair, no acute distress. Incision is clean, dry, intact. Bilateral lower extremities with normal motor functions. Bilateral lower extremity has sensation intact to light touch. Both legs are warm and dry. Bilateral calves are soft, nontender to palpation Objective Labs Result Diagrams: 10/01/20 06:17 Labs: Laboratory Results - last 24 hr 10/01/20 06:17 Hgb 10.8 L Hct 31.9 L PFSH Medical History A-fib CAD (coronary artery disease) COVID-19 virus infection Elevated PSA HLD (hyperlipidemia) HTN (hypertension) Kidney stones Myocardial infarction (~2015) Osteoarthritis Presence of Watchman left atrial appendage closure device (~2019) Subdural hematoma (04/2018) Surgical History Hx of cardiac cath Hx of tonsillectomy Social History household members: spouse Smoking Status: Never smoker alcohol intake: never Discharge Assessment & Plan Assessment and Plan Assessment: Stable status post left total hip arthroplasty, anterior approach Plan of Treatment: Weight-bearing as tolerated with front wheeled walker. Patient will continue to use Tylenol and ibuprofen for mild pain. He was given a small prescription for oxycodone for severe pain. Discharged today in stable condition. Use aspirin 81 mg twice daily for 6 weeks to prevent blood clots. Follow-up with Dr. Chaudhry in 2 weeks for his postop visit. Discharge Plan Discharge Plan Patient Disposition: Home Discharge orders & Medications Discharge Orders: Discharge (Order); Ordered 10/01/20 Ordered By: Umm Da Silva Prescriptions: New aspirin 81 mg Tablet,Delayed Release (Dr/Ec) 81 mg PO BID Qty: 90 RF: 0 ibuprofen 400 mg Tablet 400 mg PO Q4HR PRN (Reason: pain) Qty: 90 RF: 0 acetaminophen 500 mg capsule 500 mg PO Q4H PRN (Reason: pain) Qty: 90 RF: 0 oxycodone 5 mg Tablet 5 mg PO Q4-6H PRN (Reason: Pain, Moderate- Severe) Qty: 5 RF: 0 Continued losartan 50 mg Tablet 25 mg PO QAM RF: 0 losartan 50 mg Tablet 50 mg PO QPM RF: 0 atorvastatin 40 mg Tablet 40 mg PO BEDTIME RF: 0 tamsulosin 0.4 mg Capsule 0.4 mg PO BEDTIME RF: 0 metoprolol tartrate 50 mg Tablet 50 mg PO BID RF: 0 ibuprofen 200 mg Tablet 400 mg PO DAILY PRN (Reason: Pain (Scale Score 4-6)) RF: 0 hydrochlorothiazide 25 mg Tablet 25 mg PO DAILY RF: 0 Discontinued aspirin [Aspirin Low Dose] 81 mg Tablet,Delayed Release (Dr/Ec) 81 mg PO DAILY RF: 0 Follow up/Referrals: Anatoliy Bush MD [Primary Care Provider] - Alfredo Chaudhry MD [Physician] - (2 weeks for postop visit) Diet/Activity/Treatments Diet: Diet as Tolerated and Regular Activity: Weight-bearing as tolerated with front wheeled walker Cold/Heat Therapy: Use ice as needed for pain Skin/Wound/Dressing Care Report to your healthcare provider any signs of infection, such as:: chills, fever, night sweats, unusual drainage and unusual redness Dressing: Keep dressing in place, change if soiled or saturated (call the office). Okay to shower Visit Report/Discharge Packet Instructions: DI for Hip Replacement Stand Alone Forms: Surgery Discharge Discharge Data Primary Care Provider: Anatoliy Bush Attending Provider: Alfredo Chaudhry Quality VTE Deep Vein Thrombosis/Pulmonary Embolism Present on Admission: No
--- NOTE | 2020-10-01 11:45 | CM.DANOTE ---
Discharge Planning/Care Management DCP: assessment: case received, EMR reviewed and discussed in Team Rounds. PT noted that pt was doing well; stair training was planned for today. A check in now shows that pt was cleared for d/c, ortho PA completed d/c orders and pt has already left for home in company of his spouse. Admitted 09/30 for a scheduled LTHA/anterior approach. Payer: Medicare and [employer]. Admission status: in review: per [facility]. Home today as per above. Advanced directive, confirm from FAMILY Start: 09/30/20 12:43 Freq: Q24H Status: Complete Protocol: Document 09/30/20 12:43 CM (Rec: 09/30/20 13:05 CM [id number]) Advance Directive, confirm on record Time 12:45 Person contacted patient/ Copy received Yes CM Discharge Assessment Start: 10/01/20 11:44 Freq: Status: Active Protocol: Document 10/01/20 11:45 ITV (Rec: 10/01/20 11:45 ITV [id number]) Discharge Planning Assessment Advance Directives? Yes Advance Directives on File Yes History Provided By Medical Record Prior Living Arrangements House Household Members spouse Is patient alert and oriented? Yes Discharge Plan Home Pre-Anesthesia Assessment Start: 09/22/20 08:02 Freq: Status: Discharge Protocol: Document 09/22/20 08:02 CAB (Rec: 09/22/20 08:09 CAB [id number]) Pre-Anesthesia Assessment Preferred Name Gutierrez Patient Information Reviewed Via Chart Review Diagnostic Results BMP/CMP,CBC,EKG Comment Labs/EKG @ [facility], COVID screen not identified Primary Care Provider Anatoliy Bush Seen Specialist in Last 12 Months Yes Specialist Seen [employer] Professional,Orthopedist, Mallet [employer] Die Cutter,Urologist Comment PCP clearance 06/17/20 scanned Primary Language [place] Citizen Preferred Language [place] Citizen Water Inspector Required No Height 172.72 cm Weight 77.111 kg Body Mass Index (BMI) 25.8 Hearing Ability Normal Visual Assist Contacts,Glasses Dentition Type Teeth, Natural Present Barriers to Learning None Hx Anesthesia Reactions No Hx Family Anesthesia Reaction No Hx Malignant Hyperthermia No Hx Blood Transfusions No Hx Blood Transfusion Reaction No Anesthesia Review Requested Yes: PAC courtesy re: COVID 07/10/20, Echo follow-up per anesthesia alcohol intake never Smoking Status Never smoker Substance Use Type does not use Pain Present Pain Reported Musculoskeletal Symptoms Abnormal Gait,Difficulty Walking,Joint Pain,Myalgias History of Falling (Recent or History of No ) Prosthesis or Orthotic Device Cane Mental Status Oriented to own ability Is patient on oxygen? No Does patient have VENCES/SOB No Hx Sleep Apnea No CPAP/BIPAP use not prescribed Currently Taking a Beta Arabella Yes: Metoprolol Can You Climb a Flight of Stairs Without Yes SOB Hx Chest Pain No Hx SOB No Hx Syncope or Dizziness No Has a Global Professional Yes: Dr. Britton visit 03/31/20 Cardiac Testing No Hx Pacemaker/ICD No Pacemaker Rep Required? No Cardiac Clearance Received Yes Comment Watchman procedure for A-fib, no longer requires anticoagulation therapy Additional comment Cardiac records scanned Diet Type At Home Regular dysphagia No Bladder Pattern Frequency,Nocturia,Urgency Urinary Catheter Present No Hx Urinary Self Catheterization No Diabetes No Hx Drug Resistant Organism No Presence of External or Internal Medical Yes: Cardiac stents, watchman Devices device in heart Have you had any close contact with Yes: Pt had COVID 07/10/20 someone diagnosed with COVID-19? Comment No symptoms at present Lives With spouse Prior Living Arrangements House Number of Floors (Floors) Two Floors Support System Child/Children,Spouse Does the Patient Have Assistance After Yes: Daughters will stay w/pt [facility] Patient Discharge Plan Description Return Home Comment Pt previously advised overnight length of stay per surgeon Feels Safe in Current Environment Yes Been Physically Hurt or Threatened By a No Person in Current Environment Do you have thoughts of harming yourself None or others? Are you currently considering suicide? No Do you have a plan to hurt yourself or No Plan others? Do You Have Any Spiritual Beliefs That No May Affect Your HC Choices? Do You Have Any Cultural Practices That No May Affect Your HC Choices? Who Can We Speak to About Patient's Care Family, friends Identifying Code for Release of Patient Declines to issue Information Health Care Proxy/Next of Kin Sena (daughter) Health Care Proxy Comment has some memory issues Advance Directives? Yes Power of Telephone Ad Taker No
== END 2020-10-01 11:37 | disposition home or self-care (01) ==
LOC: OR 11:24 → AC 11:24
PROVIDERS: Admitting Provider Orthopaedic Surgery Adult Reconstructive Orthopaedic Surgery; PCP Family Medicine; Referring Provider Orthopaedic Surgery Adult Reconstructive Orthopaedic Surgery; Visit Provider Orthopaedic Surgery Adult Reconstructive Orthopaedic Surgery
PROC: (CPT 27130; principal; 2020-09-30 07:45)
DX: M16.12 Unilateral primary osteoarthritis, left hip (principal); Z86.16 Personal history of COVID-19; I10 Essential (primary) hypertension; I48.91 Unspecified atrial fibrillation; I25.10 Atherosclerotic heart disease of native coronary artery without angina pectoris
CPT/HCPCS: 27130; 36415; 72170; 76000; 85014; 85018; 94762; 97110; 97116; 97161; 97530; C1776; G0378; J0690; J1885; J2250; J2270; J2274; J2704; J3010

== ENCOUNTER → 2021-03-30 11:15 | Outpatient (CLI) | payer MEDICARE, OTHER, SELFPAY ==
[2020-09-30 21:14] VITALS: BMI 25.8
[2021-03-30 13:19] LABS: Prostate Specific Antigen 3.77 ng/mL (0.10-4.00)
== END ==
PROVIDERS: PCP Family Medicine; Referring Provider Family Medicine; Visit Provider Family Medicine
DX: R97.20 Elevated prostate specific antigen [PSA] (principal)
CPT/HCPCS: 36415; 84153

== ENCOUNTER → 2021-06-18 10:25 | Outpatient (CLI) | payer MEDICARE, OTHER, SELFPAY ==
[2020-09-30 21:14] VITALS: BMI 25.8
[2021-06-18 11:27] LABS: Add Manual Diff / Slide Review NO; Basophils Absolute Auto 0 /uL (0-100); Basophils Percent Auto 0.2 % (0-2); Eosinophils Absolute Auto 100 /uL (0-450); Eosinophils Percent Auto 2.1 % (2-4); Hematocrit 41.8 % (41-53); Hemoglobin 14.3 g/dL (13.5-17.5); Lymphocytes Absolute Auto 1500 /uL (1100-4500); Lymphocytes Percent Auto 22.6 % (25-40); Mean Corpuscular HGB Conc 34.3 % (30-36); Mean Corpuscular Hemoglobin 30.9 PG (26-34); Mean Corpuscular Volume 90.3 fL (80-100); Monocytes Absolute Auto 600 /uL (0-900); Monocytes Percent Auto 9.2 % (3-14); Neutrophils Absolute Auto 4400 /uL (1500-7000); Neutrophils Percent Auto 65.9 % (50-75); Platelet Count 209 X10^3/uL (150-400); Red Blood Cell Count 4.63 X10^6/uL (4.5-5.9); Red Cell Distribution Width 14.6 % (11.6-14.8); White Blood Cell Count 6.7 X10^3/uL (4.5-11.0)
[2021-06-18 12:55] LABS: Alanine Aminotransferase 27 IU/L (<50); Albumin 3.7 g/dL (3.5-5.0); Albumin Globulin Ratio 1.2 (1.0-2.8); Alkaline Phosphatase 59 U/L (38-126); Aspartate Aminotransferase 24 IU/L (17-59); BUN Creatinine Ratio 16.5 (6-22); Bilirubin Total 0.9 mg/dL (0.2-1.3); Blood Urea Nitrogen 14 mg/dL (9-20); Calcium 8.7 mg/dL (8.4-10.2); Carbon Dioxide 32 mmol/L (22-32); Chloride 102 mmol/L (98-107); Cholesterol 123 mg/dL (140-199); Estimated Glomerular Filt Rate > 60 mL/min (>60); Globulin 3.1 g/dL (1.7-4.1); Glucose 99 mg/dL (80-110); HDL Cholesterol 60 mg/dL (40-60); HEMOLYSIS < 15 (0-50); LDL Cholesterol Calculated 52 mg/dL (<100); Potassium 4.4 mmol/L (3.4-5.1); Sodium 138 mmol/L (137-145); Total Protein 6.8 g/dL (6.3-8.2); Triglycerides 56 mg/dL (35-150)
[2021-06-18 13:24] LABS: Prostate Specific Antigen Scrn 5.47 ng/mL (0.1-4.0)
== END ==
PROVIDERS: PCP Family Medicine; Referring Provider Family Medicine; Visit Provider Family Medicine
DX: R97.20 Elevated prostate specific antigen [PSA] (principal); I10 Essential (primary) hypertension; Z12.5 Encounter for screening for malignant neoplasm of prostate; I48.91 Unspecified atrial fibrillation; E78.2 Mixed hyperlipidemia; I25.10 Atherosclerotic heart disease of native coronary artery without angina pectoris; M12.89 Other specific arthropathies, not elsewhere classified, multiple sites
CPT/HCPCS: 36415; 80053; 80061; 84443; 85025; G0103

== ENCOUNTER → 2022-06-06 14:36 | Outpatient (CLI) | payer MEDICARE, OTHER, SELFPAY ==
[2020-09-30 21:14] VITALS: BMI 25.8
--- NOTE | 2022-06-06 14:39 | DI.ECHO.S_ITS ---
[facility] +---------+ : : [address] [place] : : : : [id number] : : : : Phone: [phone]+ Echocardiogram Report + + :Name: JENN GARCIA Study Date: 06/06/2022 Height: 68 in : :[facility] ReadingLocation: Weight: 165 lb : : Gender: Male BSA: 1.9 m2 : :: 1945 Age: 77 yrs BP: 114/83 mmHg: :Reason For Study: ATRIAL FIBRILLATION HR: 65 : :Ordering Physician: JS, : :SAMANTHA Madden Performed By: KURT MARREOR : :Referring: SAMANTHA WEINSTEIN : + + Interpretation Summary 1) Normal left ventricular size and thickness with low normal systolic funciton (EF 50-55%). 2) Mild hypokinesis of the inferolateral wall. 3) Mildly enlarged right ventricle with mildly reduced function. 4) No significant valvular abnormalities. 5) Compared to the Echo done 08/31/2020, no significant change. Procedure: A two-dimensional transthoracic echocardiogram with color flow and Doppler was performed. The study quality was technically adequate. Comparison is made with the echocardiogram of 08/31/2020. Left Ventricle: The left ventricle is normal in size and wall thickness. The ejection fraction is estimated to be 50-55%. Left ventricular systolic function is low normal. Mild hypokinesis of the inferolateral wall. Right Ventricle: The right ventricle is mildly dilated. Right ventricular systolic function is mildly reduced. Atria: The left atrium is mildly dilated. The right atrium is severely dilated. There is no Doppler evidence for an interatrial shunt. Mitral Valve: The mitral valve is normal in structure and function. There is mild mitral regurgitation. Aortic Valve: The aortic valve is trileaflet. The aortic valve opens well. The aortic valve is mildly calcified. There is no aortic valve stenosis. No aortic regurgitation is present. Tricuspid Valve: The tricuspid valve is normal in structure and function. There is mild tricuspid regurgitation. The right ventricular systolic pressure is estimated to be at least 40 mmHg based on an estimated right atrial pressure of 3 mm Hg. Pulmonic Valve: The pulmonic valve leaflets are thin and pliable; valve motion is normal. There is no pulmonic valvular regurgitation. Great Vessels: The aortic root is normal size. The ascending aorta is normal in size. The IVC is of normal diameter and collapses greater than 50% with a sniff. This suggests a low right atrial pressure of 3 mm Hg. Pericardium/ Pleura There is no pericardial effusion. There is no pleural effusion. MMode/2D Measurements & Calculations LVIDd: 4.6 cm LVOT diam: 1.9 cm LVIDs: 3.0 cm Ao root diam: 2.9 cm FS: 34.8 % asc Aorta Diam: 3.2 cm IVSd: 1.0 cm LVPWd: 1.0 cm LV power. diameter/BSA (cm/m^2): 2.4 LV sys. diameter/BSA (cm/m^2): 1.6 LA A2 area: 23.1 cm2 RA long axis: 5.8 cm LA A4 area: 20.1 cm2 LA length (vol): 6.3 cm LA vol: 62.9 ml LA vol index: 33.4 ml/m2 LVLs ap4: 6.3 cm LVLd ap2: 6.9 cm LVLs ap2: 6.1 cm TAPSE_phl: 1.4 cm Doppler Measurements & Calculations Ao V2 max: 109.0 cm/sec LVOT Max Romie: 75.7 cm/sec Ao V2 mean: 83.9 cm/sec LV V1 max P.3 mmHg Ao max P.0 mmHg LV V1 VTI: 16.2 cm Ao mean P.0 mmHg LO(I,D): 2.0 cm2 Ao V2 VTI: 23.2 cm LO(V,D): 2.0 cm2 sev ratio: 0.70 LO indexed to BSA (cm^2/m^2): 1.1 MV E max romie: 90.8 cm/sec TR max romie: 302.0 cm/sec Med Peak E' Romie: 6.9 cm/sec TR max P.5 mmHg E/E' med: 13.2 PA V2 max: 105.0 cm/sec Lat Peak E' Romie: 10.3 cm/sec PA V2 mean: 59.6 cm/sec E/E' lat: 8.8 PA mean P.0 mmHg E/e' average: 11.0 PA pr(Accel): 39.4 mmHg MV dec time: 0.21 sec SV(LVOT): 45.9 ml AV VR_phl: 0.69 LO(VTI)/BSA_phl: 1.1 MV P1/2t-pr_phl: 61.0 msec Reading Physician:04:01 PM
== END ==
PROVIDERS: PCP Family Medicine; Referring Provider Family Medicine; Visit Provider Family Medicine
DX: I48.91 Unspecified atrial fibrillation (principal); I25.10 Atherosclerotic heart disease of native coronary artery without angina pectoris; I08.1 Rheumatic disorders of both mitral and tricuspid valves
CPT/HCPCS: 93306

== ENCOUNTER → 2023-05-19 06:33 | Outpatient (CLI) | payer MEDICARE, OTHER, SELFPAY ==
[2020-09-30 21:14] VITALS: BMI 25.8
--- NOTE | 2023-05-19 06:36 | DI.US.S_ITS ---
PROCEDURE: US ABD AORTA ANEURYSM SCREEN INDICATIONS: Atherosclerotic heart disease TECHNIQUE: Real-time scanning was performed of the aorta and proximal common iliac arteries, with image documentation. COMPARISON: [facility], , [facility] AORTA ANEURYSM SCREENING, 08/17/2016, 11:11. FINDINGS: Aorta: Abdominal aorta is normal in caliber throughout its length. Maximum diameter of 2 cm in the proximal aorta. Iliacs: Proximal common iliac arteries are normal in caliber. These measure 1.1 cm. IMPRESSION: No aortic aneurysm. Dictated by: Nasir Tiwari M.D. on 05/19/2023 at 9:13 Approved by: Nasir Tiwari M.D. on 05/19/2023 at 9:13
--- NOTE | 2023-05-19 06:36 | DI.US.S_ITS ---
PROCEDURE: US PERIPH VENOUS LOW EXTREM LT INDICATIONS: PAIN TECHNIQUE: Real-time imaging, as well as color and pulse Doppler interrogation, were performed of the lower extremity deep veins from the inguinal ligament to the popliteal fossa, with documentation of the visualized calf veins. COMPARISON: None. FINDINGS: The common femoral, femoral, popliteal, and the visualized calf veins are normally compressible, and free of intraluminal thrombus. Color and pulse Doppler demonstrate normal phasic intraluminal flow. There is normal augmentation response to distal compression maneuver. IMPRESSION: No findings of lower extremity deep venous thrombosis. Dictated by: Nasir Tiwari M.D. on 05/19/2023 at 9:13 Approved by: Nasir Tiwari M.D. on 05/19/2023 at 9:14
== END ==
LOC: US 06:34
PROVIDERS: PCP Family Medicine; Referring Provider Family Medicine; Visit Provider Family Medicine
DX: I25.10 Atherosclerotic heart disease of native coronary artery without angina pectoris (principal); M79.662 Pain in left lower leg
CPT/HCPCS: 76706; 93971